=== PATIENT | male | born 1945 | race Caucasian/White ===

== ENCOUNTER 2019-05-05 08:02 | Outpatient (CLI) | payer MEDICARE ==
[2019-05-05 11:12] LABS: #Basophils 0.1 thou/uL (0.0-0.2); #Eosinphils 0.2 thou/uL (0.0-0.7); #Lymphocytes 2.3 thou/uL (1.20-3.40); #Monocytes 0.9 thou/uL (0.11-0.59); #Neutrophils 5.9 thou/uL (1.40-6.50); %Basophils 1.2 % (0.0-1.0); %Eosinophils 2.5 % (0.0-10.0); %Monocytes 9.6 % (0.0-10.0); %Neutrophils 62.6 % (42.0-75.0); Hemoglobin 15.6 g/dL (14.0-18.0); Mean Corpuscular HGB CONC 33.4 g/dL (32.0-36.0); Mean Corpuscular Hemoglobin 33.7 pg (27.0-31.0); Mean Platelet Volume 7.7 fL (7.4-10.4); Platelet Count 231 thou/uL (130-400); RBC Distribution Width 11.7 % (11.5-14.5); Red Blood Cell (RBC) Count 4.62 mill/uL (4.70-6.10); White Blood Cell (WBC) Count 9.4 thou/uL (4.8-10.8)
[2019-05-05 11:30] LABS: Anion Gap 11 mmol/L (10-20); BUN (Urea Nitrogen) 12 mg/dL (8.4-25.7); Calc. Creatinine Clearance 0 mL/min (70-130); Carbon Dioxide 26 mmol/L (23-31); Chloride 106 mmol/L (98-107); Estimated GFR-MDRD 83; Glucose 87 mg/dL (83-110); Potassium 4.6 mmol/L (3.5-5.1); Sodium 138 mmol/L (136-145)
== END 2019-05-05 08:03 | disposition home or self-care (01) ==
LOC: LABBT 08:02
PROVIDERS: ATTEND Surgery
DX: Z01.818 Encounter for other preprocedural examination (principal); K43.2 Incisional hernia without obstruction or gangrene
CPT/HCPCS: 80048; 85025; 93005; 93010

== ENCOUNTER 2019-05-09 05:44 | Day surgery (SDC) | payer MEDICARE ==
[2019-05-05 09:35] VITALS: BMI 32.3
[2019-05-09] MEDS ORDERED: Fentanyl 100 MCG/2 ML VIAL ONE ×2 (06:31→08:43)
[2019-05-09] MEDS ORDERED: Bupivacaine 0.25% HCL 30 ML VIAL ONE (06:56)
[2019-05-09] MEDS ORDERED: Lidocaine 1% w/Epinephrine 1:100K 20 ML VIAL ONE (06:56)
[2019-05-09] MEDS ORDERED: Midazolam HCl 2 mg/2 ml Vial ONE (07:21)
[2019-05-09] MEDS ORDERED: Dexamethasone 20 MG/5 ML VIAL ONE (08:48)
[2019-05-09] MEDS ORDERED: PROPOFOL 200 MG/20 ML VIAL ONE (08:48)
[2019-05-09] MEDS ORDERED: Ondansetron PF 4 MG/2 ML Vial ONE (08:48)
[2019-05-09] MEDS ORDERED: Lidocaine 1% PF 5 ML VIAL ONE (08:48)
[2019-05-09] MEDS ORDERED: Morphine 2 MG/ML SYRINGE ONE (09:14)
[2019-05-09] MEDS ORDERED: Morphine 4 MG/ML VIAL ONE (09:39)
[2019-05-09] MEDS ORDERED: HYDROcodone/Acetaminophen 5/325 mg Tablet ONE (10:11)
--- NOTE | 2019-05-09 10:38 | OP ---
DATE OF PROCEDURE: 05/09/2019 PREOPERATIVE DIAGNOSIS: Incisional ventral hernia. PROCEDURE PERFORMED: Open incisional ventral hernia repair with mesh. INDICATIONS: A 74-year-old male who had a previous laparotomy for a perforated appendix back in 1979, who developed a painful bulge in the epigastrium incision. FINDINGS: About an 8 cm area of hernia sac coming through a 3-cm defect. DESCRIPTION OF PROCEDURE: After informed consent was obtained, the patient was taken to the operating room, given general endotracheal anesthesia, placed in the supine position. Abdomen was prepped and draped in the usual fashion. Local anesthesia infiltrated subcutaneously and deep, and a midline incision was performed through the old scar. Subcu divided sharply. The hernia sac was dissected out circumferentially down to the fascia. The hernia sac excised. There was actually 2 defects together. There was 1 that was about 2 cm and 1 that was 1 cm. The bridge between them was opened up to create 1 defect. The hernia sac completely excised. Contents reduced. Hemostasis was assured. An 8-cm PROCEED mesh was inserted intra-abdominally, unfolded, sutured to the abdominal wall circumferentially with interrupted 0 Ethibond suture. Subcu was then reapproximated with interrupted 3-0 Vicryl and the skin closed with a running subcuticular 4-0 Rapide. Steri-Strips applied. Sterile bandage applied. The patient tolerated the procedure well, transferred to Recovery in good condition. Sponge and needle count verified correct x2. Job ID: [id number]
== END 2019-05-09 10:45 | disposition home or self-care (01) ==
LOC: SDC 05:44
PROVIDERS: ATTEND Surgery
PROC: 0WUF0JZ Supplement Abdominal Wall with Synthetic Substitute, Open Approach (ICD-10-PCS; principal; 2019-05-09)
DX: K43.2 Incisional hernia without obstruction or gangrene (principal); I10 Essential (primary) hypertension; Z79.899 Other long term (current) drug therapy; Z85.828 Personal history of other malignant neoplasm of skin; Z90.49 Acquired absence of other specified parts of digestive tract
CPT/HCPCS: C1781; J0690; J1100; J2001; J2250; J2270; J2405; J2704; J3010; S0020

== ENCOUNTER 2022-10-06 12:22 | Outpatient (CLI) | payer MEDICARE | END 2022-10-06 12:23 | disposition home or self-care (01) | LOC: SCSRAD 12:22 | PROVIDERS: ATTEND Family Medicine | DX: Z01.818 Encounter for other preprocedural examination (principal) | CPT/HCPCS: 71046 ==

== ENCOUNTER 2023-12-23 13:01 | Outpatient (CLI) | payer MEDICARE ==
[~2023-12-23 13:01] MED LIST: Iopamidol 370 76% 100 ML VIAL ONE
== END 2023-12-23 13:02 | disposition home or self-care (01) ==
LOC: BICCT 13:01
PROVIDERS: ATTEND Thoracic Surgery (Cardiothoracic Vascular Surgery)
DX: I65.23 Occlusion and stenosis of bilateral carotid arteries (principal)
CPT/HCPCS: 36415; 70498; 82565; Q9967

== ENCOUNTER 2024-01-01 13:00 | Inpatient (IN) | payer MEDICARE ==
[2024-01-05] MEDS ORDERED: Heparin 5,000 UNITS/ML VIAL ONE (06:34)
[2024-01-05] MEDS ORDERED: EPINEPHrine 1 MG/ML VIAL ONE (06:34)
[2024-01-05] MEDS ORDERED: Bupivacaine PF 0.5% 30 ML VIAL ONE (06:35)
[2024-01-05] MEDS ORDERED: Lidocaine 1% MPF 2 ML VIAL ONE (07:07)
[2024-01-05] MEDS ORDERED: Midazolam HCl 2 mg/2 ml Vial ONE (07:07)
[2024-01-05] MEDS ORDERED: CEFAZOLIN 2 GM VIAL ONE (07:24)
[2024-01-05] MEDS ORDERED: Sodium Chloride 0.9% 100 ML ONE (07:24)
[2024-01-05] MEDS ORDERED: fentaNYL PF 100 MCG/2 ML SYRINGE ONE (07:30)
[2024-01-05] MEDS ORDERED: PROPOFOL 20 ML ONE (07:30)
[2024-01-05] MEDS ORDERED: Lidocaine 2% PF 5 ML VIAL ONE (07:31)
[2024-01-05] MEDS ORDERED: Rocuronium Bromide 10 MG/ML (10ML VIAL) ONE (07:31)
[2024-01-05] MEDS ORDERED: NOREPINEPHRINE 8 MG/250 ML-D5W 250 ML ONE (07:40)
[2024-01-05] MEDS ORDERED: Ondansetron PF 4 MG/2 ML Vial ONE (07:52)
[2024-01-05] MEDS ORDERED: Dexamethasone 20 MG/5 ML VIAL ONE (07:52)
[2024-01-05] MEDS ORDERED: Heparin 10,000 UNITS/ 10 ML VIAL ONE (08:04)
[2024-01-05] MEDS ORDERED: Glycopyrrolate 0.2 MG/ML 5 ML SYRINGE ONE (08:21)
[2024-01-05] MEDS ORDERED: Protamine Sulfate 50 MG/5 ML VIAL ONE (08:30)
[2024-01-05] MEDS ORDERED: SUGAMMADEX SODIUM 200 MG/2 ML VIAL ONE (08:40)
[2024-01-05] MEDS ORDERED: traMADol HCl 50 MG TAB PO PRN (08:49)
[2024-01-05] MEDS ORDERED: Ondansetron PF 4 MG/2 ML Vial IVP PRN (08:49)
[2024-01-05] MEDS ORDERED: Nitroglycerin 50 MG/250 ML BOT 250 ML IVPB PRN (08:49)
[2024-01-05] MEDS ORDERED: fentaNYL 50 mcg/mL 1 mL Vial SLOW IVP PRN (08:49)
[2024-01-05] MEDS ORDERED: Phenylephrine 40 MG in Sodium Chloride 0.9% 250 ML 250 ML IVPB PRN (08:49)
[2024-01-05] MEDS ORDERED: hydrALAZINE 20 MG/ML VIAL SLOW IVP PRN (08:49)
[2024-01-05] MEDS ORDERED: Ipratropium/Albuterol 3 ML NEB NEB PRN (08:49)
[2024-01-05] MEDS ORDERED: Acetaminophen 325 MG TAB PO PRN (08:49)
[2024-01-05] MEDS ORDERED: ePHEDrine Sulfate 50 MG/10 ML VIAL ONE (08:54)
[2024-01-05] MEDS ORDERED: HYDROmorphone 2 MG/ML VIAL SLOW IVP PRN (09:02)
[2024-01-05] MEDS ORDERED: PACU-Morphine 4MG/ML VIAL SLOW IVP PRN (09:02)
[2024-01-05] MEDS ORDERED: Promethazine HCl 25 MG/ML VIAL IM PRN (09:02)
[2024-01-05] MEDS ORDERED: Ondansetron HCl/PF 4 MG/2 ML Vial IVP PRN (09:02)
[2024-01-05] MEDS ORDERED: Ibuprofen 200 MG TAB PO PRN (09:12)
[2024-01-05] MEDS ORDERED: Phenylephrine 40 MG/NS 250 ML 40 MG in Premix 1 BAG IVPB SCH (09:15)
[2024-01-05] MEDS ORDERED: Phenylephrine 40 MG/NS 250 ML 40 MG in Premix 1 BAG IVPB PRN (09:15)
[2024-01-05] MEDS ORDERED: Ipratropium/Albuterol 3 ML NEB ONE (09:19)
[2024-01-05] MEDS: Sodium Chloride 0.9% 1,000 ML IV SCH (12:11)
[2024-01-05] MEDS: Hydrochlorothiazide 25 MG TAB PO SCH (12:11)
[2024-01-05 12:12] VITALS: BMI 30.2
[2024-01-05] MEDS: Ipratropium/Albuterol 3 ML NEB NEB SCH (14:21)
[2024-01-05] MEDS: CEFAZOLIN 2 GM in Sodium Chloride 0.9% 100 ML IVPB SCH (16:25)
[2024-01-05] MEDS ORDERED: Zolpidem Tartrate 5 MG TAB PO PRN (16:56)
[2024-01-05] MEDS: Sodium Chloride 0.9% 500 ML IV SCH (19:06)
[2024-01-05] MEDS: Clopidogrel Bisulfate 75 MG TAB PO SCH (20:33)
[2024-01-05] MEDS: Aspirin 81 mg Enteric Coated Tablet PO SCH (20:33)
[2024-01-05] MEDS: Atorvastatin Calcium 10 MG TAB PO SCH (20:33)
[2024-01-05] MEDS: Tamsulosin HCl 0.4 MG CAP PO SCH (20:33)
[2024-01-05] MEDS: Amlodipine 5 MG TAB PO SCH (20:34)
[2024-01-05] MEDS: ALPRAZolam 0.5 MG TAB PO SCH (21:50)
[2024-01-06 07:41] VITALS: TEMP 98
== END 2024-01-06 09:00 | disposition home or self-care (01) | DRG 36 ==
LOC: SURG A 01-05 06:13 → CCU 01-05 12:05
PROVIDERS: ADMIT Thoracic Surgery (Cardiothoracic Vascular Surgery); ATTEND Thoracic Surgery (Cardiothoracic Vascular Surgery)
PROC: 037J3DZ Dilation of Left Common Carotid Artery with Intraluminal Device, Percutaneous Approach (ICD-10-PCS; principal; 2024-01-05)
PROC: 037 Upper Arteries, Dilation (ICD-10-PCS; 2024-01-05)
PROC: 037L3DZ Dilation of Left Internal Carotid Artery with Intraluminal Device, Percutaneous Approach (ICD-10-PCS; 2024-01-05)
PROC: B54BZZA Ultrasonography of Right Lower Extremity Veins, Guidance (ICD-10-PCS; 2024-01-05)
PROC: 3E033XZ Introduction of Vasopressor into Peripheral Vein, Percutaneous Approach (ICD-10-PCS; 2024-01-05)
DX: I65.22 Occlusion and stenosis of left carotid artery (principal); Z79.899 Other long term (current) drug therapy; I10 Essential (primary) hypertension; E78.5 Hyperlipidemia, unspecified; Z90.49 Acquired absence of other specified parts of digestive tract; Z96.652 Presence of left artificial knee joint; Z98.890 Other specified postprocedural states; Z82.49 Family history of ischemic heart disease and other diseases of the circulatory system
CPT/HCPCS: 93005; 93010; 94640; C1725; C1769; C1876; C1884; J0171; J0665; J1100; J1642; J1644; J2001; J2250; J2405; J2704; J2720; J7030; J7620